=== PATIENT | female | born 1975 | race Caucasian/White ===

== ENCOUNTER 2016-06-22 14:24 | Emergency (ER) | payer BC, OTHER ==
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
[2016-06-22] MEDS ORDERED: Ondansetron ODT Tab 4 MG TAB PO ONE (14:43)
[2016-06-22] MEDS ORDERED: HYDROcodone-APAP 5 MG -325 MG TABLET PO ONE (14:43)
[2016-06-22 15:08] VITALS: RESP 16; TEMP 97.2
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
--- NOTE | 2016-06-23 09:40 | DI ---
XR ELBOW COMPLETE MIN 3VW,06/22/2016 2:42 PM: Clinical History: Pain Previous Exam: None at this facility. Findings: 3 views of the left elbow are obtained, and demonstrate anatomic alignment without fractures. There i s no evidence of elbow joint effusion. Impression: Normal left elbow. Note: If pain persists or worsens, recommend followup imaging in 7-10 days to rule out an occult frac ture.
== END 2016-06-22 16:05 | disposition home or self-care (01) ==
LOC: ER 14:24
DX: S05.12XA Contusion of eyeball and orbital tissues, left eye, initial encounter (principal); M25.522 Pain in left elbow; M54.2 Cervicalgia; R51 Headache; V43.52XA Car driver injured in collision with other type car in traffic accident, initial encounter
CPT/HCPCS: 70450; 73080; 99283